=== PATIENT | male | born 1960 | race Caucasian/White ===

== ENCOUNTER 2017-06-18 10:00 | Emergency (ER) | payer BC ==
[~2017-06-18] VITALS: Ht 177.8 cm; Wt 118.2 kg
[~2017-06-18 10:00] MED LIST: CLON0.5T4 PO; DULO30CA51 PO; OLAN10TA19 PO; OXYC-658 PO; OXYC20TA55 PO; PANT40TA4 PO; PREG50CA PO; PROP10TA10 PO; TIZA4CAP PO; TOP25T PO; TOPI100T18 PO; ZOLP10TA PO
[2017-06-18 11:58] LABS: BASOPHILS % (AUTO) 0.3 % (0-1); EOSINOPHILS # (AUTO) 0.2 X10'3 (0-0.9); EOSINOPHILS % (AUTO) 2.9 % (0-6); HEMATOCRIT 40.4 % (42.0-52.0); HEMOGLOBIN 13.9 g/dl (14.0-17.9); LYMPHOCYTES # (AUTO) 2.3 X10'3 (1.1-4.8); LYMPHOCYTES % (AUTO) 36.6 % (21-51); MEAN CORPUSCULAR HEMOGLOBIN 28.9 PG (27.0-31.0); MEAN CORPUSCULAR HGB CONC 34.5 % (33.0-36.5); MEAN CORPUSCULAR VOLUME 83.7 FL (78-98); MEAN PLATELET VOLUME 7.3 FL (7.4-10.4); MONOCYTES # (AUTO) 0.6 X10'3 (0-0.9); MONOCYTES % (AUTO) 9.3 % (2-12); NEUTROPHILS # (AUTO) 3.2 X10'3 (1.8-7.7); NEUTROPHILS % (AUTO) 50.9 % (42-75); PLATELET COUNT 184 X10'3 (140-440); RED BLOOD COUNT 4.83 X10'6 (4.70-6.10); RED CELL DISTRIBUTION WIDTH 14.8 % (11.5-14.5); WHITE BLOOD COUNT 6.3 X10'3 (4.5-11.0)
[2017-06-18 12:26] LABS: ALANINE AMINOTRANSFERASE 22 U/L (12-78); ALBUMIN 3.7 G/DL (3.4-5.0); ALBUMIN/GLOBULIN RATIO 1.2 (1.1-1.5); ALKALINE PHOSPHATASE 94 IU/L (46-116); ANION GAP 10 (8-16); ASPARTATE AMINO TRANSFERASE 12 U/L (10-37); BILIRUBIN,TOTAL 0.3 MG/DL (0.1-1.0); BLOOD UREA NITROGEN 17 MG/DL (7-18); BUN/CREATININE RATIO 15.3 (5.4-32.0); CALCIUM 8.4 MG/DL (8.5-10.1); CHLORIDE 106 MMOL/L (99-107); CREATININE 1.11 MG/DL (0.60-1.10); ETHANOL < 0.010 GM/DL (0.0-0.010); GLUCOSE 101 MG/DL (70-104); SODIUM 145 MMOL/L (135-145); TOTAL CARBON DIOXIDE 29.2 MMOL/L (24-32); TOTAL PROTEIN 6.9 G/DL (6.4-8.2); eGFR 68 ML/MIN
[2017-06-18 12:27] LABS: URINE AMPHETAMINE SCREEN NEGATIVE (Neg); URINE BARBITUATE SCREEN NEGATIVE (Neg); URINE BENZODIAZEPINES SCREEN POSITIVE (Neg); URINE CANNABINOID SCREEN NEGATIVE (Neg); URINE COCAINE SCREEN NEGATIVE (Neg); URINE METHADONE SCREEN NEGATIVE (Neg); URINE OPIATE SCREEN POSITIVE (Neg); URINE PHENCYCLIDINE SCREEN NEGATIVE (Neg)
[2017-06-18 13:58] LABS: CLARITY,URINE CLEAR (Clear); COLOR,URINE YELLOW (Yellow); GLUCOSE, URINE NEGATIVE (Neg); KETONES,URINE NEGATIVE (Neg); LEUKOCYTE ESTERASE ,URINE NEGATIVE (Neg); NITRITES, URINE NEGATIVE (Neg); OCCULT BLOOD,URINE NEGATIVE (Neg); PH,URINE 5.5 (4.8-8.0); PROTEIN,URINE NEGATIVE (Neg); UROBILINOGEN,URINE 0.2 E.U/dL (0.2-1.0)
[2017-06-18 13:59] LABS: UA COLLECTION TYPE VOIDED
[2017-06-18] MEDS ORDERED: ESCI5TAB PO (15:56)
[2017-06-18] MEDS ORDERED: ZIPR40CA2 PO (15:56)
[2017-06-18] MEDS ORDERED: CLON-527 PO (15:56)
[2017-06-18] MEDS ORDERED: HYDR-3686 PO (15:56)
[2017-06-18] MEDS ORDERED: VILA10TA PO (15:56)
[2017-06-18] MEDS ORDERED: OXYC10TA57 PO (15:56)
[2017-06-18] MEDS ORDERED: CLON-529 PO (15:56)
[2017-06-18] MEDS ORDERED: ZOLP10TA5 PO (16:18)
[2017-06-18] MEDS ORDERED: OMEP20TA23 PO (16:20)
[2017-06-18] MEDS ORDERED: clonazePAM 1mg tablet PO PRN (16:50)
[2017-06-18] MEDS ORDERED: cloNIDine 0.1 mg tablet PO PRN (16:50)
[2017-06-18] MEDS ORDERED: hydrOXYzine 25 MG tablet PO PRN (16:50)
[2017-06-18] MEDS ORDERED: tizanidine 4mg tablet PO PRN (16:55)
[2017-06-18] MEDS ORDERED: oxyCODONE IR 5mg (immed. release) tablet PO PRN (16:55)
[2017-06-18] MEDS ORDERED: zolpidem 5mg tablet PO PRN (16:55)
[2017-06-18 19:51] VITALS: BP 124/72
[2017-06-18] MEDS ORDERED: ziprasidone 20mg capsule PO SCH (21:00)
[2017-06-19] MEDS ORDERED: pantoprazole 40mg Tablet.DR PO SCH (07:30)
[2017-06-19] MEDS ORDERED: CITALOpram 10mg tablet PO SCH (08:00)
[2017-06-19] MEDS ORDERED: VIIBRYD 10 MG PO SCH (08:00)
[2017-06-19] MEDS ORDERED: oxyCODONE SR 10mg (sust. release) tab PO SCH (08:00)
== END 2017-06-18 19:53 | disposition home or self-care (01) ==
LOC: ER 10:00
DX: R45.851 Suicidal ideations (principal); F32.9 Major depressive disorder, single episode, unspecified; F41.9 Anxiety disorder, unspecified; F29 Unspecified psychosis not due to a substance or known physiological condition; Z79.899 Other long term (current) drug therapy
CPT/HCPCS: 36415; 80053; 80305; 80320; 81003; 84443; 85025; 99284